=== PATIENT | male | born 1945 | race Asian ===

== ENCOUNTER 2017-10-05 10:17 | Day surgery (SDC) | payer BC ==
[~2017-10-05 10:17] MED LIST: Acetaminophen TAB* 325 MG PO PRN; Buffered Lidocaine 0.9% SYRIN* 5 ML/SYR SYRINGE INTRADERM ONE
[2017-10-05] MEDS ORDERED: Midazolam* 1 MG/ML 2 ML VIAL (2 MG) ONE (10:24)
[2017-10-05] MEDS ORDERED: fentaNYL* 50 MCG/ML 2 ML VIAL (100 MCG VIAL) ONE (10:24)
[2017-10-05] MEDS ORDERED: Neomycin/Polymy/Dex OPHTH.OIN* 3.5 GM ONE (10:58)
[2017-10-05] MEDS ORDERED: Tetracaine 0.5% OPTH.SOL 4 ML* 1 DROP BTL ONE (10:58)
[2017-10-05] MEDS ORDERED: Tropicamide 1% OPTH.SOL* BTL ONE (10:58)
[2017-10-05] MEDS ORDERED: Lidocaine 1% MPF* 2 ML VIAL ONE (10:58)
[2017-10-05] MEDS ORDERED: Phenylephrine 2.5% OPTH.SOL* 2 ML BTL ONE (10:58)
[2017-10-05] MEDS ORDERED: Ketorolac 0.5% OPHTH (NF) 0.5 % 5 ML BTL ONE (10:58)
[2017-10-05] MEDS ORDERED: Cyclopentolate 1% OPTH.SOL* 2 ML BTL ONE (10:58)
[2017-10-05 11:35] VITALS: BP 113/75
--- NOTE | 2017-10-06 01:02 | OP ---
DATE OF OPERATION: 10/05/17 - [facility] DATE OF : 49 SURGEON: Manoj Mosher MD FUR STORAGE CLERK: None. ANESTHESIOLOGIST: Seda Person MD ANESTHESIA: Topical intravenous sedation. PRE-OP DIAGNOSIS: Cataract with astigmatism, right eye. POST-OP DIAGNOSIS: Cataract with astigmatism, right eye. OPERATIVE PROCEDURE: Phacoemulsification and cataract extraction with posterior chamber toric intraocular lens implant, right eye. COMPLICATIONS: None. ESTIMATED BLOOD LOSS: None. DESCRIPTION OF PROCEDURE: The patient was seen preoperatively in the holding area where he was put in an upright position, and the leo was made at the 6 o' clock position of the limbus of the right eye. The patient was subsequently brought to the operating room where he was given a small amount of intravenous sedation and a drop of tetracaine to the right eye. The patient was prepped and draped in the usual sterile fashion for ophthalmic surgery and attention was directed to the right eye where a speculum was placed. A paracentesis was placed at the 11 o'clock position and 0.1 cc of 1% preservative-free lidocaine was injected into the anterior chamber followed by DisCoVisc. The eye was digitally stabilized with a 2.75 mm keratome was used to create a triplanar clear corneal incision at the 9 o'clock position. A continuous curvilinear capsulorrhexis was created with a cystotome and Utrata forceps. BSS on a cannula was used to hydrodissect the lens from the capsule. Phacoemulsification was performed in a adtjys-tqc-pmuygwu technique to create four fragments which were removed. Residual cortical material was removed with irrigation and aspiration. Healon was used to inflate the capsular bag. A Neri marker was used to leo the 83 degree access at the limbus. An SN6AT4 9.5 diopter lens was folded and inserted into the capsular bag. It was rotated at the appropriate axial alignment with a Sinskey hook and held there for the paracentesis with the Sinskey hook as the irrigation and aspiration was performed to remove visual aspect from the eye. The Sinskey hook was then removed and BSS on a cannula was used to hydrate the corneal stroma and seal the wound. At the end of the case, the pupil was round. The lens was centered , stable, and axially aligned. The eye pressure appeared normal and the wound was watertight. The speculum was removed and topical Maxitrol ointment was placed on the surface of the eye. The eye was closed, patched and shielded and the patient was sent to the recovery room in stable condition with post operative instructions and follow-up appointment given. [id number]/CPS #: [id number] MTDCarlos Eduardo
== END 2017-10-05 11:43 | disposition home or self-care (01) ==
LOC: OREAST 10:17
PROVIDERS: ATTEND Ophthalmology
DX: H25.11 Age-related nuclear cataract, right eye (principal); H52.201 Unspecified astigmatism, right eye; K27.9 Peptic ulcer, site unspecified, unspecified as acute or chronic, without hemorrhage or perforation; J45.40 Moderate persistent asthma, uncomplicated; Z87.891 Personal history of nicotine dependence; Z88.1 Allergy status to other antibiotic agents; G47.00 Insomnia, unspecified
CPT/HCPCS: A9270-GY; J2250; J3010; V2787

== ENCOUNTER 2017-10-12 09:26 | Day surgery (SDC) | payer BC ==
[~2017-10-12 09:26] MED LIST changes: -Acetaminophen TAB* 325 MG PO PRN; -Buffered Lidocaine 0.9% SYRIN* 5 ML/SYR SYRINGE INTRADERM ONE; +Cyclopentolate 1% OPTH.SOL* 2 ML BTL ONE; +Ketorolac 0.5% OPHTH (NF) 0.5 % 5 ML BTL ONE; +Lidocaine 1% MPF* 2 ML VIAL ONE; +Neomycin/Polymy/Dex OPHTH.OIN* 3.5 GM ONE; +Phenylephrine 2.5% OPTH.SOL* 2 ML BTL ONE; +Tetracaine 0.5% OPTH.SOL 4 ML* 1 DROP BTL ONE; +Tropicamide 1% OPTH.SOL* BTL ONE
[2017-10-12] MEDS ORDERED: fentaNYL* 50 MCG/ML 2 ML VIAL (100 MCG VIAL) ONE (10:19)
[2017-10-12] MEDS ORDERED: Midazolam* 1 MG/ML 2 ML VIAL (2 MG) ONE (10:19)
[2017-10-12 11:14] VITALS: BP 111/83
--- NOTE | 2017-10-13 00:28 | OP ---
DATE OF OPERATION: 10/12/17 - [facility] DATE OF : 49 SURGEON: Manoj Mosher MD OB GYN PHYSICIAN ASSISTANT: None. ANESTHESIOLOGIST: Gregor Jacobo MD ANESTHESIA: Topical intravenous sedation. PRE-OP DIAGNOSIS: Cataract with astigmatism, left eye. POST-OP DIAGNOSIS: Cataract with astigmatism, left eye. OPERATIVE PROCEDURE: Phacoemulsification and cataract extraction with posterior chamber toric intraocular lens implant, left eye. COMPLICATIONS: None. ESTIMATED BLOOD LOSS: None. DESCRIPTION OF PROCEDURE: The patient was seen preoperatively in the holding area where he was placed in an upright position. A leo was made at the 6 o' clock position of the limbus of the left eye. The patient was subsequently brought to the operating room and given a small amount of intravenous sedation. A drop of tetracaine was placed in the left eye. The patient was prepped and draped in the usual sterile fashion for ophthalmic surgery and attention was directed to the left eye where a speculum was placed. A paracentesis was created at the 4:30 position. 0.1 cc of 1% preservative-free lidocaine was injected into the anterior chamber followed by DisCoVisc. The eye was digitally stabilized while a 2.75-mm keratome was used to create a triplanar clear corneal incision at the 3 o'clock position. A continuous curvilinear capsulorrhexis was created with a cystotome and Utrata forceps. BSS on a cannula was used to hydrodissect the lens from the capsule. Phacoemulsification was performed in a kdjjiz-vyk-axcqoba technique to create 4 fragments which were removed. Residual cortical material was removed with irrigation and aspiration. Healon was used to inflate the capsular bag. A Neri marker was used to leo the 97-degree access at the limbus. An SN6AT5 10.5 diopter lens was folded and inserted into the capsular bag. A Sinskey hook was used to ____ _ the appropriate axial alignment. The Sinskey hook remained in the eye for the paracentesis to stabilize the lens while irrigation and aspiration was performed to remove viscoelastic from the eye. The Sinskey hook was removed. BSS on a cannula was used to hydrate the corneal stroma and seal the wound. At the end of the case, the pupil was round. The lens was centered, stable, and axially aligned. The eye pressure appeared normal and the wound was watertight. The speculum was removed and topical Maxitrol ointment was placed on the surface of the eye. The eye was closed, patched, and shielded, and the patient was sent to the recovery room in stable condition with postoperative instructions and followup appointment given. [id number]/CPS #: [id number] MTDD
== END 2017-10-12 11:15 | disposition home or self-care (01) ==
LOC: OREAST 09:26
PROVIDERS: ATTEND Ophthalmology
DX: H25.12 Age-related nuclear cataract, left eye (principal); H52.209 Unspecified astigmatism, unspecified eye; K27.9 Peptic ulcer, site unspecified, unspecified as acute or chronic, without hemorrhage or perforation; R73.03 Prediabetes; R05 Cough; J45.40 Moderate persistent asthma, uncomplicated; R73.9 Hyperglycemia, unspecified; G47.00 Insomnia, unspecified; R21 Rash and other nonspecific skin eruption; Z88.1 Allergy status to other antibiotic agents; Z87.891 Personal history of nicotine dependence
CPT/HCPCS: A9270-GY; J2250; J3010; V2787

== ENCOUNTER 2018-04-10 17:13 | Emergency (ER) | payer BC ==
[2018-04-10] MEDS ORDERED: Lidocaine 1% MPF wEPI 200,000* 30 ML SDV INJ ONE (18:02)
[2018-04-10] MEDS ORDERED: Tetan/Diph/Pertus SYR(Tdap)* 0.5 ML SYR(BOOSTRIX) use SYR IM ONE (18:17)
[2018-04-10] MEDS ORDERED: Lidocaine 2% EPI 1:200000 MPF*10-20 ML VIAL ONE (18:48)
--- NOTE | 2018-04-10 18:53 | ED ---
Head Injury - HPI Summary HPI Summary: 72-year-old male presents with head injury today. He is walking in [facility] and hit his head on a rock. He denies any loss consciousness. Is not blood thinners. No neck pain. No blurry vision. He admits to a little bit of dizziness. No nausea no vomiting. No other injury. He admits to a mild headache. no photophobia. Unsure of his last tetanus was. There is no active bleeding to his scalp laceration. No medical conditions. - History Of Current Complaint Chief Complaint: EDLacSutureRecheck Stated Complaint: HEAD LAC Time Seen by Provider: 04/10/18 17:43 Pain Intensity: 2 - Allergies/Home Medications Allergies/Adverse Reactions: Allergies Allergy/AdvReac Type Severity Reaction Status Date / Time amoxicillin Allergy Intermediate Rash Verified 04/10/18 17:33 Home Medications: Home Medications Albuterol inh POWDER (NF) [Proair Respiclick] 2 puff INH Q6HR PRN 04/10/18 [ History Confirmed 04/10/18] PMH/Surg Hx/FS Hx/Imm Hx Endocrine/Hematology History: Denies: Hx Anticoagulant Therapy Respiratory History: Reports: Hx Asthma GI History: Reports: Hx Ulcer - ulcer bleeding - resolved 10 years ago, Other GI Disorders - gall bladder removed approx 10 years ago Sensory History: Reports: Hx Cataracts, Hx Contacts or Glasses Denies: Hx Hearing Aid Opthamlomology History: Reports: Hx Cataracts, Hx Contacts or Glasses - Cancer History Hx Chemotherapy: No - Surgical History Surgery Procedure, Year, and Place: Gallbladder Hx Anesthesia Reactions: No Infectious Disease History: No Infectious Disease History: Denies: Traveled Outside the [place] in Last 30 Days - Family History Known Family History: Positive: Hypertension - Social History Alcohol Use: None Substance Use Type: Reports: None Smoking Status (MU): Former Smoker Amount Used/How Often: sporadic when a student Review of Systems Negative: Fever Negative: Chest Pain Negative: Shortness Of Breath Positive: Other - scalp laceration Positive: Headache All Other Systems Reviewed And Are Negative: Yes Physical Exam Triage Information Reviewed: Yes Vital Signs On Initial Exam: Initial Vitals Temp Pulse Resp BP Pulse Ox 97.8 F 78 20 144/108 97 04/10/18 17:18 04/10/18 17:18 04/10/18 17:18 04/10/18 17:18 04/10/18 17:18 Vital Signs Reviewed: Yes Appearance: Positive: Well-Appearing Skin: Positive: Warm, Dry, Other - 5cm by 1/2cm on scalp Head/Face: Positive: Normal Head/Face Inspection, Other - no step off, racoon eyes, cornell sign Eyes: Positive: Normal, EOMI, CHANELL, Conjunctiva Clear ENT: Positive: Normal ENT inspection, Pharynx normal, TMs normal Neck: Positive: Other: - nontender neck, full ROM neck Respiratory/Lung Sounds: Positive: Clear to Auscultation, Breath Sounds Present Cardiovascular: Positive: Normal, RRR Musculoskeletal: Positive: Normal Neurological: Positive: Sensory/Motor Intact, Alert, Oriented to Person Place, Time, CN Intact II-III Psychiatric: Positive: Normal - Oskar Coma Scale Best Eye Response: 4 - Spontaneous Best Motor Response: 6 - Obeys Commands Best Verbal Response: 5 - Oriented Coma Scale Total: 15 Procedures - Laceration/Wound Repair 1 Location: head Description: Linear Anesthesia: Local, 1.0%, Epi Length, Depth and Shape: 5cm by 1/2cm Irrigated w/ Saline (ccs): 200 Closure: [place] #__ - 7 Diagnostics - Vital Signs Vital Signs Temp Pulse Resp BP Pulse Ox 04/10/18 17:18 97.8 F 78 20 144/108 97 - Laboratory Lab Statement: Any lab studies that have been ordered have been reviewed, and results considered in the medical decision making process. - CT brain CT Interpretation: No Acute Changes CT Interpretation Completed By: Radiologist Head Injury Course/Dx Course Of Treatment: 72-year-old male presents with head injury today. He is walking in [facility] and hit his head on a rock. He denies any loss consciousness. Is not blood thinners. No neck pain. No blurry vision. He admits to a little bit of dizziness. No nausea no vomiting. No other injury. He admits to a mild headache. no photophobia. Unsure of his last tetanus was. There is no active bleeding to his scalp laceration. No medical conditions. On exam normal neuro exam. Has 5 cm by half centimeter laceration of scalp. Cleaning placed 7 kimberli. Due to age got CT. CT normal. We'll have follow- up with primary. Patient understands agrees plan. - Diagnoses Differential Diagnosis/HQI/PQRI: Concussion Without LOC, Contusion, Intracranial Bleed, Laceration Provider Diagnoses: Head injury, Scalp laceration Discharge - Sign-Out/Discharge Documenting (check all that apply): Discharge/Admit/Transfer - Discharge Plan Condition: Good Disposition: HOME Patient Education Materials: Head Injury (ED), Staple Care (ED) Referrals: Paul Don MD [Primary Care Provider] - Additional Instructions: Take Tylenol for pain every 6 hours Return to ED, urgent care or primary in 7-10 days to have kimberli removed Follow up with primary within 7 days Wash area with soap and water Return to ED if develop signs of infection such as fever, spreading redness, or pus or if vomit again or any new or worsening symptoms - Billing Disposition and Condition Condition: GOOD Disposition: Home
--- NOTE | 2018-04-10 19:31 | RAD ---
HISTORY: head injury COMPARISONS: None TECHNIQUE: Multiple contiguous axial CT scans were obtained of the head without intravenous contrast. FINDINGS: HEMORRHAGE/INFARCT: There is no hemorrhage or acute infarct. MASSES/SHIFT: There is no mass or shift. EXTRA-AXIAL SPACES: There are no extra-axial fluid collections. SULCI AND VENTRICLES: The sulci and ventricles are normal in size and position for the patient's stated age. CEREBRUM: There are no focal parenchymal abnormalities. BRAINSTEM: There are no focal parenchymal abnormalities. CEREBELLUM: There are no focal parenchymal abnormalities. VESSELS: The vessels are grossly normal. PARANASAL SINUSES: The paranasal sinuses are clear. ORBITS: The orbits are unremarkable. BONES AND SOFT TISSUE: No bone or soft tissue abnormalities are noted. OTHER: None IMPRESSION: NO ACUTE INTRACRANIAL PATHOLOGY.
[2018-04-10 20:06] VITALS: BP 152/92
== END 2018-04-10 20:05 | disposition home or self-care (01) ==
LOC: ED 17:13
DX: S01.01XA Laceration without foreign body of scalp, initial encounter (principal); W19.XXXA Unspecified fall, initial encounter; Y92.9 Unspecified place or not applicable; Z23 Encounter for immunization; Z87.891 Personal history of nicotine dependence; Z88.3 Allergy status to other anti-infective agents
CPT/HCPCS: 12002; 70450; 90471; 90715; 99283; J2001

== ENCOUNTER 2018-04-30 20:25 | Emergency (ER) | payer BC ==
[2018-04-30 20:35] VITALS: BP 133/96
--- NOTE | 2018-04-30 20:44 | UC ---
Skin Complaint HPI - HPI Summary HPI Summary: 72 yo male presents with right elbow swelling that started 3 days ago. He tells me that he noticed some swelling begin 3 days ago, but since that time has developed redness in his proximal forearm that is mildly tender to touch. Has not been taking anything OTC. Denies fever, chills, decreased ROM, drainage, or injury. - History of Current Complaint Chief Complaint: UCUpperExtremity Time Seen by Provider: 04/30/18 20:43 Stated Complaint: PAINFUL,SWELLING,WARM R ARM Hx Obtained From: Patient Onset/Duration: Gradual Onset Skin Exposure Onset/Duration: Days Ago Onset Severity: Mild Current Severity: Mild Pain Intensity: 3 Pain Scale Used: 0-10 Numeric - Allergy/Home Medications Allergies/Adverse Reactions: Allergies Allergy/AdvReac Type Severity Reaction Status Date / Time amoxicillin Allergy Intermediate Rash Verified 04/30/18 20:36 Review of Systems Constitutional: Negative Skin: Negative Respiratory: Negative Cardiovascular: Negative Motor: Negative Neurovascular: Negative Musculoskeletal: Other: - Right elbow swelling and redness Neurological: Negative Psychological: Negative All Other Systems Reviewed And Are Negative: Yes PMH/Surg Hx/FS Hx/Imm Hx Previously Healthy: Yes Respiratory History: Asthma Other History Of: Negative For: Anticoagulant Therapy - Surgical History Surgical History: Yes Surgery Procedure, Year, and Place: Gallbladder - Family History Known Family History: Positive: Hypertension - Social History Occupation: Employed Full-time Lives: With Family Alcohol Use: None Substance Use Type: None Smoking Status (MU): Never Smoked Tobacco Amount Used/How Often: sporadic when a student When Did the Patient Quit Smoking/Using Tobacco: 1975 Physical Exam - Summary Physical Exam Summary: GENERAL: NAD. WDWN. No pain distress. SKIN: No rashes, sores, lesions, or open wounds. NECK: Supple. Nontender. No lymphadenopathy. CHEST: No accessory muscle use. Breathing comfortably and in no distress. CV: RRR. Without m/r/g. Pulses intact radial and ulnar. MSK: RIGHT ELBOW: Mild TTP. Mild edema at olecranon bursa. Mild erythema extending from bursa down to proximal forearm. FROM without pain. Strength 5/5 including terra cotta mold maker strength. No open wounds. NEURO: Alert. Sensations intact hand and all fingers. PSYCH: Age appropriate behavior. Triage Information Reviewed: Yes Vital Signs: Initial Vital Signs Temp 98.1 F 04/30/18 20:30 Pulse 65 04/30/18 20:30 Resp 16 04/30/18 20:30 BP 133/96 04/30/18 20:30 Pulse Ox 99 04/30/18 20:30 Course/Dx - Course Course Of Treatment: Right elbow bursitis/cellulitis. Rx for clindamycin and advised to take ibuprofen and ice the elbow. F/u with [facility] if no improvement. - Diagnoses Provider Diagnoses: Right elbow bursitis Discharge - Sign-Out/Discharge Documenting (check all that apply): Discharge/Admit/Transfer - Discharge Plan Condition: Stable Disposition: HOME Prescriptions: Clindamycin HCl 150 mg PO TID #21 capsule Patient Education Materials: Elbow Bursitis (ED) Referrals: Paul Don MD [Primary Care Provider] - [facility] [Provider Group] - If Needed Additional Instructions: If you develop a fever, shortness of breath, chest pain, new or worsening symptoms - please call your PCP or go to the ED. Your blood pressure was mildly elevated at todays visit. Please see your primary provider within 4 weeks for recheck and re-evaluation. 1) Ice your elbow and take ibuprofen 600mg every 6-8 hours to help decrease the swelling 2) If your elbow does not improve within the next 3-4 days, please call Orthopedics at the number below to schedule a follow up appointment - Billing Disposition and Condition Condition: STABLE Disposition: Home
[2018-04-30] MEDS ORDERED: Clindamycin CAP* 150 MG PO ONE (20:50)
== END 2018-04-30 21:09 | disposition home or self-care (01) ==
LOC: UCEAST 20:25
DX: M70.31 Other bursitis of elbow, right elbow (principal); J45.909 Unspecified asthma, uncomplicated; Z87.891 Personal history of nicotine dependence; Z88.0 Allergy status to penicillin
CPT/HCPCS: 99212; A9270-GY; G0463

== ENCOUNTER 2018-11-06 17:10 | Emergency (ER) | payer BC ==
--- NOTE | 2018-11-06 17:14 | UC ---
Skin Complaint HPI - HPI Summary HPI Summary: 72 yo male presents with lesion on upper back for the last week. Says he feels it getting larger and more painful. Has not been able to see it and has not been applying anything OTC to it. Denies fever or chills. - History of Current Complaint Time Seen by Provider: 11/06/18 17:14 Stated Complaint: RASH Hx Obtained From: Patient Onset/Duration: Gradual Onset Onset Severity: Mild Current Severity: Moderate Pain Intensity: 5 Pain Scale Used: 0-10 Numeric - Allergy/Home Medications Allergies/Adverse Reactions: Allergies Allergy/AdvReac Type Severity Reaction Status Date / Time amoxicillin Allergy Intermediate Rash Verified 04/30/18 20:36 PMH/Surg Hx/FS Hx/Imm Hx Respiratory History: Asthma Other History Of: Negative For: Anticoagulant Therapy - Surgical History Surgical History: Yes Surgery Procedure, Year, and Place: Gallbladder - Family History Known Family History: Positive: Hypertension - Social History Lives: With Family Alcohol Use: None Substance Use Type: None Smoking Status (MU): Never Smoked Tobacco Amount Used/How Often: sporadic when a student When Did the Patient Quit Smoking/Using Tobacco: 1975 Review of Systems All Other Systems Reviewed And Are Negative: Yes Constitutional: Positive: Negative Skin: Positive: Other - abscess Respiratory: Positive: Negative Cardiovascular: Positive: Negative Neurovascular: Positive: Negative Neurological: Positive: Negative Psychological: Positive: Negative Physical Exam - Summary Physical Exam Summary: GENERAL: NAD. WDWN. No pain distress. SKIN: Midline upper back there is a 7mm diameter of mild erythema and edema with central 1mm area of superficial skin loss. No streaking, bleeding, or drainage. Right upper back with 4mm ?abscess vs cyst - mild erythema. NTTP. No induration NECK: Supple. Nontender. No lymphadenopathy. CHEST: No accessory muscle use. Breathing comfortably and in no distress. CV: Pulses intact. Cap refill <2seconds NEURO: Alert. PSYCH: Age appropriate behavior. Triage Information Reviewed: Yes Vital Signs: Vital Signs: Temp Pulse Resp BP Pulse Ox 97.6 F 75 16 153/92 100 11/06/18 17:16 11/06/18 17:16 11/06/18 17:16 11/06/18 17:16 11/06/18 17:16 Vital Signs Reviewed: Yes Procedures - Incision and Drainage Upper Midline Back Anesthesia: Local Instrument(s): Scalpel - #11 Course/Dx - Course Course Of Treatment: The procedure was explained to the pt and all questions were answered. A time out was performed, witnessed, and signed. The area was cleansed with an alcohol pad. 1mL of 2% lidocaine without epi was administered and good anesthetization was achieved. A #11 blade was used to make a 4mm vertical incision at the central most part of the mid upper back abscess. Copious purulent material was able to be expressed. A #11 blade was used to suraj the right upper back lesion and scant clear fluid expressed. The mid back abscess was bandaged with foam dressing. The right upper back cyst was dressed with a band-aid. Pt tolerated procedure well. - Diagnoses Provider Diagnosis: Abscess of back Discharge - Sign-Out/Discharge Documenting (check all that apply): Patient Departure All imaging exams completed and their final reports reviewed: No Studies - Discharge Plan Condition: Stable Disposition: HOME Prescriptions: Cephalexin CAP* [Keflex CAP*] 500 mg PO BID #10 cap Patient Education Materials: Abscess (ED) Referrals: Paul Don MD [Primary Care Provider] - Additional Instructions: If you develop a fever, shortness of breath, chest pain, new or worsening symptoms - please call your PCP or go to the ED. Your blood pressure was high at todays visit. Please see your primary provider within 4 weeks for recheck and re-evaluation. Keep the area bandaged for 2-3 days or until well healed - Billing Disposition and Condition Condition: STABLE Disposition: Home - Attestation Statements Provider Attestation: Per institutional requirements, I have reviewed the chart, however, I was not consulted specifically or made aware of this patient by the midlevel provider. I did not personally evaluate, interact with , or disposition this patient.
[2018-11-06] MEDS ORDERED: Lidocaine 2% PF * 5 ML VIAL INJ ONE (17:30)
[2018-11-06 17:59] VITALS: BP 130/90
== END 2018-11-06 18:00 | disposition home or self-care (01) ==
LOC: UCEAST 17:10
DX: L02.212 Cutaneous abscess of back [any part, except buttock and flank] (principal); Z88.0 Allergy status to penicillin
CPT/HCPCS: 10060; 99202; G0463